=== PATIENT | female | born 1970 | race Caucasian/White ===

== ENCOUNTER 2017-07-16 07:35 | Inpatient (IN) | payer OTHER ==
[2017-07-16] VITALS (11 sets, daily range): BP systolic 109–132; BP diastolic 7–80
[~2017-07-16] VITALS: Ht 172.7 cm; Wt 85.0 kg
[~2017-07-16 07:35] MED LIST: BENTYL10 MG PO; CENTRUM SILVER1 EAC4 PO; DURAGESIC12 MCG TD; DURAGESIC25 MCG TD; EXCEDRIN MIGRA1 EAC3 PO; EXCEDRIN MIGRA1 EACH PO; IMODIUM MS REL1 EACH PO; MULTIVITAMIN1 EAC2 PO; NEURONTIN300 MG PO; OMEPRAZOLE40 M1 PO; OXYCODONE-APAP1 EACH; OXYCONTIN15 MG; PERCOCET 10/1 TABLET PO; VALACYCLOVIR500 MG; VITAMIN; VITAMIN B12-FO1 EACH PO; VITAMIN C100 MG PO; ZOFRAN4 MG PO; [UNRECOGNIZED DRUG - OTHER]
[2017-07-16 08:10] LABS: BASOPHIL (%) 0.3 % (0-1); EOSINOPHIL (%) 0 % (0-5); HEMATOCRIT 30.2 % (36.0-46.0); HEMOGLOBIN 10.3 G/DL (11.9-15.5); IMMATURE GRANULOCYTE (%) 0.2 % (0.0-0.7); LYMPHOCYTE (%) 11.2 % (15-42); MCH 31.8 PG (29.0-34.0); MCHC 34.1 G/DL (30.0-36.0); MCV 93.2 FL (83-99); MONOCYTE (%) 2.7 % (3-12); MONOCYTE COUNT 0.3 K/uL (0-0.8); NEUTROPHIL (%) 85.6 % (45-76); NEUTROPHIL COUNT 7.8 K/uL (1.8-6.4); PLATELET COUNT 247 K/uL (156-360); RBC DIS.WIDTH-SD 40.9 % (39-53); RED BLOOD COUNT 3.24 M/uL (3.80-5.20); WHITE BLOOD COUNT 9.2 K/uL (4.1-10.2)
[2017-07-16 08:50] LABS: CHLORIDE 107 MEQ/L (99-109); CREATININE 0.7 MG/DL (0.6-1.3); GFR ESTIMATE (CALCULATED) > 59 mL/min/; GLUCOSE 132 mg/dL (70-99); POTASSIUM 4.3 MEQ/L (3.7-5.4); SODIUM 139 MEQ/L (136-147); UREA NITROGEN (BUN) 25 mg/dL (9-23)
[2017-07-16] MEDS ORDERED: BUTALB-ACETAMI1 EAC2 PO (09:16)
[2017-07-16] MEDS ORDERED: ZYRTEC10 M3 PO (09:17)
[2017-07-16] MEDS ORDERED: OMEPRAZOLE40 M1 PO (09:17)
[2017-07-16 09:21] LABS: INTER. NORMALIZED RATIO 1.1
[2017-07-16 10:21] LABS: HEMATOCRIT 26.8 % (36.0-46.0); HEMOGLOBIN 9.3 G/DL (11.9-15.5); MCV 93.7 FL (83-99)
[2017-07-16 13:49] LABS: HEMATOCRIT 29.2 % (36.0-46.0); HEMOGLOBIN 9.6 G/DL (11.9-15.5); MCV 94.5 FL (83-99)
[2017-07-16 20:59] LABS: HEMATOCRIT 30.1 % (36.0-46.0); HEMOGLOBIN 10.4 G/DL (11.9-15.5); MCV 91.2 FL (83-99)
[2017-07-17] VITALS (8 sets, daily range): BP systolic 114–124; BP diastolic 63–83
[2017-07-17 01:56] LABS: HEMATOCRIT 27.6 % (36.0-46.0); HEMOGLOBIN 9.6 G/DL (11.9-15.5); MCV 92.3 FL (83-99)
[2017-07-17 05:33] LABS: HEMATOCRIT 28.5 % (36.0-46.0); HEMOGLOBIN 9.5 G/DL (11.9-15.5); MCV 93.4 FL (83-99)
[2017-07-17 11:51] LABS: HEMATOCRIT 34.2 % (36.0-46.0); HEMOGLOBIN 11.7 G/DL (11.9-15.5); MCV 92.4 FL (83-99)
[2017-07-17 14:33] LABS: HEMATOCRIT 36.8 % (36.0-46.0); HEMOGLOBIN 12.2 G/DL (11.9-15.5); MCV 92.2 FL (83-99)
== END 2017-07-17 17:32 | disposition home or self-care (01) | DRG 378 ==
LOC: EME 07:35 → 4EAST 09:37 → EDOF 09:37 → ENRESERV 09:44 → EDOF 10:15 → ENRESERV 10:20 → 4EAST 12:04
PROVIDERS: Emergency Medicine; Physician Assistant Medical
PROC: 30233N1 Transfusion of Nonautologous Red Blood Cells into Peripheral Vein, Percutaneous Approach (ICD-10-PCS; principal; 2017-07-16)
PROC: 0DJ08ZZ Inspection of Upper Intestinal Tract, Via Natural or Artificial Opening Endoscopic (ICD-10-PCS; 2017-07-16)
PROC: 0DJD8ZZ Inspection of Lower Intestinal Tract, Via Natural or Artificial Opening Endoscopic (ICD-10-PCS; 2017-07-17)
DX: K92.1 Melena (principal); D62 Acute posthemorrhagic anemia; K57.30 Diverticulosis of large intestine without perforation or abscess without bleeding; K31.4 Gastric diverticulum; R55 Syncope and collapse; I95.9 Hypotension, unspecified; E86.0 Dehydration; R00.0 Tachycardia, unspecified; Z98.84 Bariatric surgery status; K59.03 Drug induced constipation; T40.605A Adverse effect of unspecified narcotics, initial encounter; D25.9 Leiomyoma of uterus, unspecified; I10 Essential (primary) hypertension; K21.9 Gastro-esophageal reflux disease without esophagitis; R32 Unspecified urinary incontinence; M47.9 Spondylosis, unspecified; G89.29 Other chronic pain; M54.5 Low back pain; M25.559 Pain in unspecified hip; G43.909 Migraine, unspecified, not intractable, without status migrainosus; N80.9 Endometriosis, unspecified
CPT/HCPCS: 74177; 80048; 85014; 85018; 85025; 85610; 86850; 86900; 86901; 86920; 87641; 93005; 99281; 99285; C9113; J1756; J2405; J7030; J7050; J7643; P9016; P9040

== ENCOUNTER 2017-09-10 08:05 | Emergency (ER) | payer OTHER ==
[~2017-09-10] VITALS: Ht 170.2 cm; Wt 79.9 kg
[2017-09-10] VITALS (7 sets, daily range): BP systolic 107–122; BP diastolic 71–98
[~2017-09-10 08:05] MED LIST changes: +BUTALB-ACETAMI1 EAC2 PO; +ZYRTEC10 M3 PO
[2017-09-10 08:35] LABS: APPEARANCE SL.HAZY ((CLEAR)); BILIRUBIN NEGATIVE; BLOOD NEGATIVE; COLOR YELLOW ((YELLOW)); GLUCOSE (STRIP) NEGATIVE; KETONES NEGATIVE; LEUKOCYTES NEGATIVE; NITRITE NEGATIVE; PROTEIN (STRIP) NEGATIVE; SPECIFIC GRAVITY 1.031 (1.000-1.030); UROBILINOGEN 0.2 MG/DL (0.2-1.0)
[2017-09-10 08:36] LABS: BACTERIA NONE SEEN /HPF; EPITHELIAL CELLS 2+ /HPF; MUCUS TRACE /LPF; RED BLOOD CELLS 0-5 /HPF (0-5); WHITE BLOOD CELLS 0-5 /HPF (0-5)
[2017-09-10 09:34] LABS: BASOPHIL (%) 0.6 % (0-1); EOSINOPHIL (%) 1.7 % (0-5); EOSINOPHIL COUNT 0.1 K/uL (0-0.3); HEMATOCRIT 25.6 % (36.0-46.0); HEMOGLOBIN 8.6 G/DL (11.9-15.5); IMMATURE GRANULOCYTE (%) 0.3 % (0.0-0.7); LYMPHOCYTE (%) 33.1 % (15-42); LYMPHOCYTE COUNT 1.1 K/uL (1.0-2.8); MCHC 33.6 G/DL (30.0-36.0); MCV 89.2 FL (83-99); MONOCYTE (%) 9.6 % (3-12); MONOCYTE COUNT 0.3 K/uL (0-0.8); NEUTROPHIL (%) 54.7 % (45-76); NEUTROPHIL COUNT 1.9 K/uL (1.8-6.4); PLATELET COUNT 192 K/uL (156-360); RBC DIS.WIDTH-CV 12.1 % (11.8-14.6); RBC DIS.WIDTH-SD 39.3 % (39-53); RED BLOOD COUNT 2.87 M/uL (3.80-5.20); WHITE BLOOD COUNT 3.4 K/uL (4.1-10.2)
[2017-09-10 09:44] LABS: ALBUMIN 3.5 g/dL (3.2-4.8); CHLORIDE 107 mEq/L (99-109); SODIUM 139 mEq/L (136-147)
[2017-09-10 09:46] LABS: GLUCOSE 90 mg/dL (70-99); TOTAL PROTEIN 5.6 g/dL (6.4-8.3)
[2017-09-10 09:48] LABS: TOTAL BILIRUBIN 0.2 mg/dL (0.0-1.0)
[2017-09-10 09:50] LABS: ALKALINE PHOSPHATASE 53 IU/L (3-129); CREATININE 0.7 mg/dL (0.6-1.3); GFR ESTIMATE (CALCULATED) > 59 mL/min/
[2017-09-10 09:51] LABS: UREA NITROGEN (BUN) 22 mg/dL (9-23)
[2017-09-10 09:52] LABS: AST (GOT) 12 IU/L (2-34)
[2017-09-10 09:53] LABS: ALT (GPT) 7 IU/L (3-49)
[2017-09-10 09:59] LABS: QUANTITATIVE HCG < 4.0 MIU/ML
[2017-09-10 17:45] LABS: BASOPHIL (%) 0.6 % (0-1); EOSINOPHIL (%) 0.6 % (0-5); HEMOGLOBIN 9.3 G/DL (11.9-15.5); IMMATURE GRANULOCYTE (%) 0.2 % (0.0-0.7); LYMPHOCYTE COUNT 1.9 K/uL (1.0-2.8); MCH 30.2 PG (29.0-34.0); MCHC 34.4 G/DL (30.0-36.0); MCV 87.7 FL (83-99); MONOCYTE (%) 8.9 % (3-12); MONOCYTE COUNT 0.4 K/uL (0-0.8); NEUTROPHIL (%) 49.7 % (45-76); NEUTROPHIL COUNT 2.4 K/uL (1.8-6.4); PLATELET COUNT 187 K/uL (156-360); RBC DIS.WIDTH-CV 12.7 % (11.8-14.6); RBC DIS.WIDTH-SD 40.4 % (39-53); RED BLOOD COUNT 3.08 M/uL (3.80-5.20); WHITE BLOOD COUNT 4.7 K/uL (4.1-10.2)
== END 2017-09-10 19:38 | disposition short-term general hospital (02) ==
LOC: EME 08:05
PROVIDERS: Nurse Practitioner Family
PROC: 30233N1 Transfusion of Nonautologous Red Blood Cells into Peripheral Vein, Percutaneous Approach (ICD-10-PCS; principal; 2017-09-10)
DX: K92.2 Gastrointestinal hemorrhage, unspecified (principal); D64.9 Anemia, unspecified; Z98.84 Bariatric surgery status; R00.0 Tachycardia, unspecified; I10 Essential (primary) hypertension; G89.29 Other chronic pain; M54.9 Dorsalgia, unspecified; Z87.442 Personal history of urinary calculi; Z90.49 Acquired absence of other specified parts of digestive tract; Z88.8 Allergy status to other drugs, medicaments and biological substances
CPT/HCPCS: 74022; 80053; 81003; 84702; 85025; 85025 91; 86850; 86900; 86901; 86920; 93005; 99281; 99285; J2405; J7030; P9016